=== PATIENT | male | born 1990 | race African-American/Black ===

== ENCOUNTER 2021-10-27 18:41 | Emergency (ER) | payer OTHER ==
[~2021-10-27] VITALS: Ht 188 cm; Wt 159.0 kg
[2021-10-27] MEDS ORDERED: ALBUTEROL (0.083%) 2.5MG/3ML NEB HHN STA (21:20)
[2021-10-27] MEDS ORDERED: PREDNISONE 20MG TABLET PO STA (21:20)
[2021-10-27] MEDS ORDERED: IBUP-2028 MT (21:27)
[2021-10-27] MEDS ORDERED: ALBU6.7H9 INH (21:27)
[2021-10-27] MEDS ORDERED: P20 MT (21:27)
[2021-10-27] MEDS ORDERED: ACETAMINOPHEN 325MG TABLET PO ONE (21:30)
[2021-10-27] MEDS ORDERED: IBUPROFEN 600MG TABLET PO ONE (21:30)
[2021-10-27] MEDS ORDERED: TAM75 MT (22:36)
[2021-10-27 22:50] LABS: BASOPHILS % 0.6 % (0.0-2.0); HEMATOCRIT. 46.5 % (42.0-52.0); HEMOGLOBIN. 14.7 g/dL (14.0-18.0); LYMPHOCYTES % 9.5 % (20.0-50.0); MEAN CORPUSCULAR HEMOGLOBIN 23.8 pg (28.0-32.0); MEAN CORPUSCULAR VOLUME 75.2 fL (80.0-94.0); MEAN PLATELET VOLUME 10.8 fl (7.4-10.4); MONOCYTES % 6.9 % (2.0-8.0); PLATELET 156 x1000/uL (130-400); RED BLOOD CELL COUNT 6.19 mill/uL (4.7-6.1); RED CELL DISTRIBUTION WIDTH 15.6 % (11.6-14.6)
[2021-10-27 22:55] LABS: CHLORIDE 105 mEq/L (98-107)
[2021-10-27] MEDS ORDERED: ALBU05 NEB (23:16)
[2021-10-27 23:59] VITALS: BP 126/63
== END 2021-10-28 00:04 | disposition home or self-care (01) ==
LOC: ER 18:41
DX: J45.901 Unspecified asthma with (acute) exacerbation (principal); B34.9 Viral infection, unspecified; R50.9 Fever, unspecified; Z79.899 Other long term (current) drug therapy; Z88.0 Allergy status to penicillin; Z20.822 Contact with and (suspected) exposure to COVID-19
CPT/HCPCS: 36415; 71045; 80053; 85025; 93005; 99285; C9803; J7512; U0003; U0005